=== PATIENT | male | born 1950 | race Caucasian/White ===

== ENCOUNTER 2020-04-27 06:50 | Observation (INO) | payer MEDICARE ==
[2020-04-23 11:57] LABS: BASOPHILS # (AUTO) 0.1 (0.0-0.1); EOSINOPHILS # (AUTO) 0.2 (0.0-0.4); EOSINOPHILS % 3.3 % (0.0-6.0); HEMATOCRIT 40.4 % (38.2-49.6); HEMOGLOBIN 13.8 g/dL (14.0-18.0); LYMPHOCYTES # (AUTO) 1.3 (1.0-3.2); LYMPHOCYTES % 23.3 % (18.0-39.1); MEAN CORPUSCULAR HEMOGLOBIN 29.7 pg (28-32); MEAN CORPUSCULAR HGB CONC 34.2 g/dL (31-35); MEAN CORPUSCULAR VOLUME 87.1 fL (81-99); MONOCYTES # (AUTO) 0.6 (0.2-0.8); MONOCYTES % 10.3 % (4.4-11.3); NEUTROPHILS # (AUTO) 3.5 (2.1-6.9); NEUTROPHILS % 61.8 % (38.7-80.0); PLATELET COUNT 219 x10e3/uL (140-360); RED BLOOD COUNT 4.64 x10e6/uL (4.3-5.7); RED CELL DISTRIBUTION WIDTH 12.5 % (11.7-14.4)
[~2020-04-27] VITALS: Ht 152.4 cm; Wt 95.5 kg
[~2020-04-27 06:50] MED LIST: LORTAB 10-5001 EACH PO; ZESTRIL10 MG PO
[2020-04-27] MEDS ORDERED: DEXAMETHASONE SOD PHOS 10 MG/1 ML VIAL ONE (07:36)
[2020-04-27] MEDS ORDERED: CELECOXIB 200 MG CAP ONE (07:36)
[2020-04-27] MEDS ORDERED: CEFAZOLIN SOD 1 GM/NS 50ML 100 ML IV ONE (07:37)
[2020-04-27] MEDS ORDERED: GABAPENTIN 300 MG CAP ONE (07:37)
[2020-04-27] MEDS ORDERED: HYDROCHLOROTHIA25 MG PO (07:48)
[2020-04-27] MEDS ORDERED: ATORVASTATIN CA20 MG PO (07:48)
[2020-04-27] MEDS ORDERED: ROPIVACAINE 246.25 MG, EPINEPHRINE HCL 1:1000 1ML 0.5 MG, CLONIDINE HCL 0.08 MG, KETORO... INJ ONE ×5 (08:00)
[2020-04-27] MEDS ORDERED: VANCOMYCIN HCL 1,000 MG ONE (08:11)
[2020-04-27] MEDS ORDERED: TRANEXAMIC ACID 1,000 MG/10 ML ML ONE (08:11)
[2020-04-27] MEDS ORDERED: SODIUM CHLORIDE 0.9% 500ML 500 ML ONE (08:12)
[2020-04-27 08:23] LABS: ANION GAP 14.1 mmol/L (8-16); CALCIUM 8.7 mg/dL (8.4-10.2); CREATININE, SERUM 1.2 mg/dL (0.72-1.25); POTASSIUM 4.1 mmol/L (3.5-5.1)
[2020-04-27] MEDS ORDERED: ACETAMINOPHEN 1000 MG/100 ML 100 ML IV ONE (09:24)
[2020-04-27] MEDS ORDERED: HYDROCODONE/APAP 5MG-325MG TAB PO PRN (10:15)
[2020-04-27] MEDS ORDERED: ONDANSETRON HCL INJ 2MG/ML 2ML 2 MG/ML VIAL IV PRN (10:15)
[2020-04-27] MEDS ORDERED: DOCUSATE SODIUM 100 MG CAP PO PRN (10:15)
[2020-04-27] MEDS ORDERED: KETOROLAC TROMETHAMINE 30 MG/ML VIAL IV PRN (10:15)
[2020-04-27] MEDS ORDERED: ZOLPIDEM TARTRATE 5 MG TAB PO PRN (10:15)
[2020-04-27] MEDS ORDERED: ACETAMINOPHEN 650 MG SUPP PR PRN (10:15)
[2020-04-27] MEDS ORDERED: DIPHENHYDRAMINE HCL INJ 50 MG/ML VIAL IV PRN (10:15)
[2020-04-27] MEDS: SODIUM CHLORIDE 0.9% 1000ML 1,000 ML IV SCH ×2 (10:15→20:15)
[2020-04-27 11:30] VITALS: BP 118/68
[2020-04-27] MEDS ORDERED: ONDANSETRON HCL INJ 2MG/ML 2ML 2 MG/ML VIAL ONE (12:11)
[2020-04-27] MEDS ORDERED: PROPOFOL IV EMULSION 10 MG/ML 20 ML VIAL ONE (12:11)
[2020-04-27] MEDS ORDERED: SEVOFLURANE INHAL SOLN 250 ML PEN BTL ONE (12:11)
[2020-04-27] MEDS ORDERED: LIDOCAINE HCL 2% LOCAL INJ 5 ML SDV VIAL INJ ONE (12:11)
[2020-04-27 15:06] VITALS: BP 141/78
[2020-04-27] MEDS: CEFAZOLIN SOD 1 GM/NS 50ML 50 ML IV SCH (17:15)
[2020-04-27] MEDS: ASPIRIN 325 MG TAB PO SCH (17:15)
[2020-04-27] MEDS: CELECOXIB 200 MG CAP PO SCH (17:15)
[2020-04-27 20:00] VITALS: BP 124/74
[2020-04-27 21:00] VITALS: BP 124/74
[2020-04-28] VITALS: BP 117/67
[2020-04-28] MEDS: CEFAZOLIN SOD 1 GM/NS 50ML 50 ML IV SCH ×2 (00:30→09:07)
[2020-04-28 04:00] VITALS: BP 130/70
[2020-04-28 05:17] LABS: HEMATOCRIT 31.4 % (38.2-49.6); HEMOGLOBIN 10.7 g/dL (14.0-18.0)
[2020-04-28] MEDS: SODIUM CHLORIDE 0.9% 1000ML 1,000 ML IV SCH (06:15)
[2020-04-28 07:54] VITALS: BP 155/81
[2020-04-28] MEDS ORDERED: LISINOPRIL 10 MG TAB PO SCH (09:00)
[2020-04-28] MEDS ORDERED: HYDROCHLOROTHIAZIDE 25 MG TAB PO SCH (09:00)
[2020-04-28] MEDS: ASPIRIN 325 MG TAB PO SCH (09:07)
[2020-04-28] MEDS: CELECOXIB 200 MG CAP PO SCH (09:07)
[2020-04-28 09:41] VITALS: BP 155/81
[2020-04-28] MEDS ORDERED: ONDANSETRON HCL 4 MG ORAL DISINTEGRATING TAB PO PRN (10:00)
[2020-04-28] MEDS ORDERED: ACETAMINOPHEN 1000 MG/100 ML IV PRN (10:15)
[2020-04-28] MEDS: HYDROCODONE/APAP 7.5MG-325MG 1 EA TAB PO PRN ×2 (11:47→15:00)
[2020-04-28 12:22] VITALS: BP 125/73
[2020-04-28] MEDS ORDERED: ATORVASTATIN 20 MG TAB PO SCH (21:00)
== END 2020-04-28 13:37 | disposition home health service (06) ==
LOC: OR 06:50 → PACU V 10:10 → MED/SURG 10:50
PROVIDERS: ADMIT Specialist; ATTEND Specialist
DX: M17.12 Unilateral primary osteoarthritis, left knee (principal); I10 Essential (primary) hypertension; E78.00 Pure hypercholesterolemia, unspecified; Z01.810 Encounter for preprocedural cardiovascular examination; Z01.812 Encounter for preprocedural laboratory examination; Z01.818 Encounter for other preprocedural examination; Z20.822 Contact with and (suspected) exposure to COVID-19
CPT/HCPCS: 27447; 36415 ×3; 71046; 73560; 80048; 85014; 85018; 85025; 86850; 86900; 86920; 93005; 97110; 97116 ×2; 97161; C1713 ×2; C1776 ×3; G0378 ×2; J0131; J0171; J0690 ×2; J1100; J1885; J2001; J2405; J2704; J2795; J3370; J7040; U0002